=== PATIENT | female | born 1950 | race Caucasian/White ===

== ENCOUNTER 2017-02-25 04:15 | Inpatient (IN) | payer OTHER ==
[2017-02-24 16:24] LABS: BLOOD UREA NITROGEN 16 mg/dL (7-18)
[2017-02-24 16:28] LABS: ASPARTATE AMINO TRANSFERASE 13 U/L (15-37)
[~2017-02-25] VITALS: Ht 157.5 cm; Wt 88.1 kg
[~2017-02-25 04:15] MED LIST: ALBU90AE PO; ASPI325T4 PO; ATOR80TA75 PO; CITA40TA5 PO; FURO-93 PO; GABA600T2 PO; HYDR25TA11 PO; INSULIN ISOPHANE SQ; LISI1TAB7 PO; METO50TA82 PO
[2017-02-25] MEDS ORDERED: ALBUMIN HUMAN 5% 500 ML IV ONE (04:30)
[2017-02-25] MEDS ORDERED: CHLORHEXIDINE MOUTHWASH 15 ML UDC MM SCH (05:00)
[2017-02-25] MEDS ORDERED: DO NOT GIVE MC SCH (05:00)
[2017-02-25] MEDS: MUPIROCIN OINT 2%, 22GM TP SCH ×2 (05:54→20:21)
[2017-02-25] MEDS: INSULIN ASPART 100 UNITS/ML, PEN SQ-INSULIN SCH ×2 (05:58→23:41)
[2017-02-25] MEDS ORDERED: VANCOMYCIN 1,300 MG in SODIUM CHLORIDE 0.9% 250 ML IV PRN (07:30)
[2017-02-25] MEDS ORDERED: DEXMEDETOMIDINE 200 MCG in SODIUM CHLORIDE 0.9% 48 ML IV SCH (07:30)
[2017-02-25] MEDS ORDERED: PHENYLEPHRINE 10 MG in SODIUM CHLORIDE 0.9% 249 ML IV PRN ×2 (07:30→12:05)
[2017-02-25] MEDS ORDERED: MANNITOL PMX 20% 500 ML IVPB PRN (07:30)
[2017-02-25] MEDS ORDERED: REGULAR INSULIN 62.5 UNITS in SODIUM CHLORIDE 0.9% 249.375 ML IV PRN ×2 (07:30→12:30)
[2017-02-25] MEDS ORDERED: CEFUROXIME 1.5 GM in SODIUM CHLORIDE 0.9% 50 ML IVPB PRN (07:30)
[2017-02-25] MEDS ORDERED: POTASSIUM CHLORIDE 80 MEQ, SODIUM BICARBONATE 8.4% 10 MEQ, MAGNESIUM SULFATE 0.5 GM, LI... IV PRN (07:30)
[2017-02-25] MEDS ORDERED: EPINEPHRINE 2 MG in SODIUM CHLORIDE 0.9% 248 ML IV SCH (07:30)
[2017-02-25] MEDS ORDERED: FENTANYL PF 1000 MCG/20ML ONE (07:51)
[2017-02-25] MEDS ORDERED: MIDAZOLAM 10MG/2 ML ONE (07:51)
[2017-02-25] MEDS ORDERED: PROPOFOL 10 MG/ML, 20ML ONE (08:10)
[2017-02-25] MEDS ORDERED: ROCURONIUM 10 MG/ML ONE (08:10)
[2017-02-25] MEDS ORDERED: PAPAVERINE 30 MG/ML, 2ML IVPush ONE (09:16)
[2017-02-25] MEDS ORDERED: HEPARIN 1,000 UNITS/ML, 10ML IV ONE (09:16)
[2017-02-25] MEDS ORDERED: SODIUM CHLORIDE 0.9% 1,000 ML IV PRN (12:05)
[2017-02-25] MEDS ORDERED: DEXMEDETOMIDINE 200 MCG in SODIUM CHLORIDE 0.9% 48 ML IV PRN (12:05)
[2017-02-25] MEDS ORDERED: CLEVIDIPINE 50 ML IV PRN (12:05)
[2017-02-25] MEDS ORDERED: NITROGLYCERIN/D5W PMX 250 ML IV PRN (12:05)
[2017-02-25] MEDS ORDERED: PROCHLORPERAZINE 5 MG/ML, 2ML IVPush PRN (12:30)
[2017-02-25] MEDS ORDERED: DEXTROSE 50%, 50ML SYRINGE IVPush PRN (12:30)
[2017-02-25] MEDS ORDERED: BISACODYL 5 MG EC TABLET PO PRN (12:30)
[2017-02-25] MEDS ORDERED: LACTATED RINGERS 500 ML IVBOLUS PRN (12:30)
[2017-02-25] MEDS ORDERED: SODIUM BICARB 8.4%, 50ML SYRINGE IV PRN (12:30)
[2017-02-25] MEDS ORDERED: MIDAZOLAM 1 MG/ML, 5ML IVPush PRN (12:30)
[2017-02-25] MEDS ORDERED: MEPERIDINE/PF 25MG/0.5ML IVPush PRN (12:30)
[2017-02-25] MEDS ORDERED: DEXTROSE 4 GM TAB.CHEW PO PRN (12:30)
[2017-02-25] MEDS ORDERED: GLUCAGON 1 MG IM PRN (12:30)
[2017-02-25] MEDS ORDERED: ACETAMINOPHEN 650 MG SUPP PR PRN (12:30)
[2017-02-25] MEDS ORDERED: ACETAMINOPHEN 325 MG TABLET PO PRN (12:30)
[2017-02-25] MEDS ORDERED: HYDROmorphone 1 MG/ML, 1ML IVPush PRN (12:30)
[2017-02-25] MEDS ORDERED: BISACODYL 10 MG SUPP PR PRN (12:30)
[2017-02-25] MEDS ORDERED: HYDROmorphone PCA 30 MG/30 ML IV PRN (12:30)
[2017-02-25] MEDS ORDERED: PROTAMINE SULFATE 10 MG/ML, 25ML ONE (12:33)
[2017-02-25] MEDS ORDERED: AMINOCAPROIC ACID 250 MG/ML, 20ML ONE (12:34)
[2017-02-25] MEDS ORDERED: ALBUMIN HUMAN 25% 100 ML ONE (12:34)
[2017-02-25] MEDS ORDERED: SODIUM BICARBONATE 1 MEQ/ML, 50ML VIAL ONE (12:34)
[2017-02-25] MEDS ORDERED: CALCIUM CHLORIDE 10%, 10ML SYR ONE (12:34)
[2017-02-25] MEDS ORDERED: HEPARIN 1,000 UNITS/ML, 30ML ONE (12:34)
[2017-02-25] MEDS ORDERED: LIDOCAINE 2% 100MG/5ML SYRINGE ONE (12:35)
[2017-02-25] MEDS ORDERED: HEPARIN 1,000 UNITS/ML, 10ML ONE (12:35)
[2017-02-25] MEDS ORDERED: PAPAVERINE 30 MG/ML, 2ML ONE (12:35)
[2017-02-25 12:39] LABS: ABG COLLECTION SITE ARTERIAL LINE
[2017-02-25] MEDS: SODIUM CHLORIDE FLUSH 10ML SYR IVF SCH ×3 (13:11→20:20)
[2017-02-25] MEDS ORDERED: POTASSIUM CHLORIDE PMX 100 ML IV ONE (13:30)
[2017-02-25] MEDS ORDERED: EPINEPHRINE 2 MG in SODIUM CHLORIDE 0.9% 248 ML IV PRN (13:30)
[2017-02-25] MEDS: KSCALE TO 4.5 IV SCH ×2 (13:45→18:21)
[2017-02-25] MEDS ORDERED: DOBUTAMINE 250 MG in SODIUM CHLORIDE 0.9% 230 ML IV PRN (14:00)
[2017-02-25] MEDS: MAGNESIUM SULFATE 1 GM in SODIUM CHLORIDE 0.9% 50 ML IVPB SCH (14:27)
[2017-02-25 19:24] VITALS: BP 97/62
[2017-02-25] MEDS: CEFUROXIME 1.5 GM in SODIUM CHLORIDE 0.9% 50 ML IVPB SCH (20:20)
[2017-02-25] MEDS: MUPIROCIN OINT 2%, 22GM NAS SCH (20:21)
[2017-02-25] MEDS: VANCOMYCIN 1,300 MG in SODIUM CHLORIDE 0.9% 250 ML IVPB SCH (21:18)
[2017-02-25] MEDS: DOCUSATE 100 MG CAPSULE PO SCH (21:18)
[2017-02-25] MEDS: OXYcodone IR 5MG TABLET PO PRN (21:19)
[2017-02-25] MEDS: INSULIN ASPART 100 UNITS/ML, PEN SQ-INSULIN PRN (22:33)
[2017-02-25] MEDS: HYDROcodone/APAP 10/325 MG TABLET PO PRN (23:44)
[2017-02-26] VITALS (10 sets, daily range): BP systolic 84–105; BP diastolic 40–66
[2017-02-26] MEDS: INSULIN ASPART 100 UNITS/ML, PEN SQ-INSULIN SCH ×6 (00:23→17:12)
[2017-02-26] MEDS: KSCALE TO 4.5 IV SCH ×2 (00:30→05:33)
[2017-02-26] MEDS: OXYcodone IR 5MG TABLET PO PRN (02:39)
[2017-02-26 05:31] LABS: BLOOD UREA NITROGEN 18 mg/dL (7-18)
[2017-02-26 05:33] LABS: ABG COLLECTION SITE ARTERIAL LINE
[2017-02-26] MEDS: HYDROcodone/APAP 10/325 MG TABLET PO PRN ×3 (06:37→15:28)
[2017-02-26] MEDS: ONDANSETRON 2MG/ML, 2ML IVPush PRN ×2 (06:37→17:42)
[2017-02-26] MEDS: CEFUROXIME 1.5 GM in SODIUM CHLORIDE 0.9% 50 ML IVPB SCH (07:59)
[2017-02-26] MEDS: VANCOMYCIN 1,300 MG in SODIUM CHLORIDE 0.9% 250 ML IVPB SCH (07:59)
[2017-02-26] MEDS: ALBUTEROL SULFATE 2.5 MG/3 ML HHN SCH ×3 (08:00→16:00)
[2017-02-26] MEDS ORDERED: MAGNESIUM HYDROXIDE 8%, 30ML UDC PO PRN (08:00)
[2017-02-26] MEDS: FUROSEMIDE 20 MG/2 ML IV SCH ×3 (08:59→21:07)
[2017-02-26] MEDS: MUPIROCIN OINT 2%, 22GM NAS SCH ×2 (08:59→21:07)
[2017-02-26] MEDS: DOCUSATE 100 MG CAPSULE PO SCH ×2 (08:59→21:10)
[2017-02-26] MEDS: SODIUM CHLORIDE FLUSH 10ML SYR IVF SCH ×5 (08:59→21:11)
[2017-02-26] MEDS ORDERED: GABAPENTIN 300 MG CAPSULE PO SCH (09:00)
[2017-02-26] MEDS ORDERED: FUROSEMIDE 40 MG/4 ML IV SCH ×2 (09:00)
[2017-02-26] MEDS ORDERED: ASPIRIN 81 MG TABLET EC PO SCH (09:00)
[2017-02-26] MEDS ORDERED: CITALOPRAM 20 MG TABLET PO SCH (09:00)
[2017-02-26] MEDS: MUPIROCIN OINT 2%, 22GM TP SCH ×2 (09:00→21:07)
[2017-02-26] MEDS ORDERED: PANTOPRAZOLE 40 MG IV IVPush SCH (09:00)
[2017-02-26] MEDS: GUAIFENESIN 200 MG TABLET PO SCH ×3 (11:24→21:09)
[2017-02-26] MEDS: CHLORHEXIDINE MOUTHWASH 15 ML UDC MM SCH ×2 (14:34→23:48)
[2017-02-26] MEDS: MAGNESIUM SULFATE 1 GM in SODIUM CHLORIDE 0.9% 50 ML IVPB SCH (14:35)
[2017-02-26] MEDS ORDERED: WARFARIN 5 MG TABLET PO-COUM SCH (18:00)
[2017-02-26] MEDS ORDERED: METOPROLOL TARTRATE 25 MG TABLET PO SCH (18:00)
[2017-02-26] MEDS ORDERED: ATORVASTATIN 80 MG TABLET PO SCH (21:00)
[2017-02-27] MEDS: INSULIN ASPART 100 UNITS/ML, PEN SQ-INSULIN SCH ×2 (00:35→08:41)
[2017-02-27] MEDS ORDERED: ACETAMINOPHEN 325 MG TABLET PO PRN (01:00)
[2017-02-27] MEDS ORDERED: ACETAMINOPHEN 650 MG SUPP PR PRN (01:00)
[2017-02-27] MEDS: ONDANSETRON 2MG/ML, 2ML IVPush PRN ×3 (01:06→08:31)
[2017-02-27] MEDS: HYDROcodone/APAP 10/325 MG TABLET PO PRN (01:06)
[2017-02-27] MEDS ORDERED: ONDANSETRON 2MG/ML, 2ML ONE (01:29)
[2017-02-27] MEDS ORDERED: CHLORHEXIDINE MOUTHWASH 15 ML UDC MM SCH ×2 (01:30)
[2017-02-27] MEDS ORDERED: BISACODYL 10 MG SUPP PR PRN (01:30)
[2017-02-27] MEDS ORDERED: DEXTROSE 4 GM TAB.CHEW PO PRN (01:30)
[2017-02-27] MEDS ORDERED: DEXTROSE 50%, 50ML SYRINGE IVPush PRN (01:30)
[2017-02-27] MEDS ORDERED: BISACODYL 5 MG EC TABLET PO PRN (01:30)
[2017-02-27 01:48] VITALS: BP 94/55
[2017-02-27] MEDS ORDERED: MAGNESIUM HYDROXIDE 8%, 30ML UDC PO PRN (02:00)
[2017-02-27] MEDS ORDERED: PROCHLORPERAZINE 5 MG/ML, 2ML IVPush PRN (02:00)
[2017-02-27] MEDS ORDERED: SODIUM BICARB 8.4%, 50ML SYRINGE IV PRN (02:00)
[2017-02-27] MEDS ORDERED: GLUCAGON 1 MG IM PRN (02:00)
[2017-02-27] MEDS: ALBUTEROL SULFATE 2.5 MG/3 ML HHN SCH ×4 (06:00→21:00)
[2017-02-27] MEDS: GUAIFENESIN 200 MG TABLET PO SCH ×4 (06:07→20:29)
[2017-02-27] MEDS: METOPROLOL TARTRATE 25 MG TABLET PO SCH ×2 (06:07→17:31)
[2017-02-27 06:08] VITALS: BP 106/67
[2017-02-27 07:46] VITALS: BP 109/67
[2017-02-27] MEDS: FUROSEMIDE 20 MG/2 ML IV SCH ×2 (08:32→20:30)
[2017-02-27] MEDS: SODIUM CHLORIDE FLUSH 10ML SYR IVF SCH ×6 (08:32→20:31)
[2017-02-27] MEDS: MUPIROCIN OINT 2%, 22GM NAS SCH ×2 (08:34→20:30)
[2017-02-27] MEDS: CITALOPRAM 20 MG TABLET PO SCH (08:35)
[2017-02-27] MEDS: DOCUSATE 100 MG CAPSULE PO SCH ×2 (08:35→20:31)
[2017-02-27] MEDS: ASPIRIN 81 MG TABLET EC PO SCH (08:35)
[2017-02-27] MEDS: GABAPENTIN 300 MG CAPSULE PO SCH (08:36)
[2017-02-27] MEDS: ENOXAPARIN 40 MG/0.4 ML SQ SCH (08:36)
[2017-02-27] MEDS: POTASSIUM CHLORIDE 20 MEQ TAB.ER.PRT PO SCH (08:36)
[2017-02-27] MEDS ORDERED: ENOXAPARIN 40 MG/0.4 ML SQ SCH (09:00)
[2017-02-27] MEDS ORDERED: POTASSIUM CHLORIDE 20 MEQ TAB.ER.PRT PO SCH (09:00)
[2017-02-27] MEDS ORDERED: POTASSIUM CHLORIDE 10 MEQ TABLET.ER PO SCH (09:00)
[2017-02-27] MEDS ORDERED: FUROSEMIDE 20 MG/2 ML IV SCH (09:00)
[2017-02-27] MEDS ORDERED: PANTOPRAZOLE 40 MG IV IVPush SCH (09:00)
[2017-02-27 09:25] LABS: BLOOD UREA NITROGEN 30 mg/dL (7-18)
[2017-02-27] MEDS: CHLORHEXIDINE MOUTHWASH 15 ML UDC MM SCH (12:21)
[2017-02-27] MEDS: INSULIN ASPART 100 UNITS/ML, PEN SQ-INSULIN PRN ×3 (12:34→20:36)
[2017-02-27 14:30] VITALS: BP 106/63
[2017-02-27] MEDS: MAGNESIUM SULFATE 1 GM in SODIUM CHLORIDE 0.9% 50 ML IVPB SCH (15:56)
[2017-02-27] MEDS ORDERED: WARFARIN 5 MG TABLET PO-COUM SCH (18:00)
[2017-02-27 19:08] VITALS: BP 95/59
[2017-02-27] MEDS: ATORVASTATIN 80 MG TABLET PO SCH (20:31)
[2017-02-28] MEDS: CHLORHEXIDINE MOUTHWASH 15 ML UDC MM SCH (00:42)
[2017-02-28 00:49] VITALS: BP 98/60
[2017-02-28] MEDS: HYDROcodone/APAP 10/325 MG TABLET PO PRN ×2 (04:02→21:07)
[2017-02-28] MEDS: ALBUTEROL SULFATE 2.5 MG/3 ML HHN SCH ×4 (06:00→21:00)
[2017-02-28] MEDS: GUAIFENESIN 200 MG TABLET PO SCH ×4 (06:09→21:06)
[2017-02-28] MEDS: METOPROLOL TARTRATE 25 MG TABLET PO SCH ×2 (06:09→17:54)
[2017-02-28 08:09] VITALS: BP 101/62
[2017-02-28] MEDS: INSULIN ASPART 100 UNITS/ML, PEN SQ-INSULIN PRN ×2 (08:28→21:06)
[2017-02-28] MEDS: CITALOPRAM 20 MG TABLET PO SCH (08:28)
[2017-02-28] MEDS: PANTOPROZOLE 40MG TABLET PO SCH (08:29)
[2017-02-28] MEDS: MUPIROCIN OINT 2%, 22GM NAS SCH ×2 (08:29→21:06)
[2017-02-28] MEDS: ENOXAPARIN 40 MG/0.4 ML SQ SCH (08:29)
[2017-02-28] MEDS: DOCUSATE 100 MG CAPSULE PO SCH ×2 (08:29→20:45)
[2017-02-28] MEDS: ASPIRIN 81 MG TABLET EC PO SCH (08:29)
[2017-02-28] MEDS: POTASSIUM CHLORIDE 20 MEQ TAB.ER.PRT PO SCH (08:29)
[2017-02-28] MEDS: GABAPENTIN 300 MG CAPSULE PO SCH (08:29)
[2017-02-28] MEDS: FUROSEMIDE 20 MG/2 ML IV SCH ×2 (08:30→17:57)
[2017-02-28] MEDS: SODIUM CHLORIDE FLUSH 10ML SYR IVF SCH ×6 (08:30→21:06)
[2017-02-28] MEDS: INSULIN ASPART 100 UNITS/ML, PEN SQ-INSULIN SCH ×2 (11:25→17:47)
[2017-02-28 14:30] VITALS: BP 118/67
[2017-02-28] MEDS ORDERED: WARFARIN 2.5 MG TABLET PO-COUM SCH (18:00)
[2017-02-28 19:29] VITALS: BP 105/68
[2017-02-28] MEDS: ATORVASTATIN 80 MG TABLET PO SCH (21:06)
[2017-03-01] VITALS (7 sets, daily range): BP systolic 93–145; BP diastolic 57–70
[2017-03-01] MEDS: ALBUTEROL SULFATE 2.5 MG/3 ML HHN SCH ×4 (06:00→20:46)
[2017-03-01] MEDS: METOPROLOL TARTRATE 25 MG TABLET PO SCH ×2 (06:51→17:50)
[2017-03-01] MEDS: GUAIFENESIN 200 MG TABLET PO SCH ×4 (06:51→20:14)
[2017-03-01] MEDS: PANTOPROZOLE 40MG TABLET PO SCH (07:56)
[2017-03-01] MEDS: INSULIN ASPART 100 UNITS/ML, PEN SQ-INSULIN SCH ×3 (07:56→17:55)
[2017-03-01] MEDS: SODIUM CHLORIDE FLUSH 10ML SYR IVF SCH ×6 (07:57→20:29)
[2017-03-01] MEDS: FUROSEMIDE 20 MG/2 ML IV SCH ×2 (07:57→20:19)
[2017-03-01] MEDS: CITALOPRAM 20 MG TABLET PO SCH (07:58)
[2017-03-01] MEDS: ASPIRIN 81 MG TABLET EC PO SCH (07:58)
[2017-03-01] MEDS: DOCUSATE 100 MG CAPSULE PO SCH ×2 (07:58→20:29)
[2017-03-01] MEDS: MUPIROCIN OINT 2%, 22GM NAS SCH ×2 (07:58→20:14)
[2017-03-01] MEDS: GABAPENTIN 300 MG CAPSULE PO SCH (07:59)
[2017-03-01] MEDS: ENOXAPARIN 40 MG/0.4 ML SQ SCH (07:59)
[2017-03-01] MEDS: POTASSIUM CHLORIDE 20 MEQ TAB.ER.PRT PO SCH (07:59)
[2017-03-01] MEDS: HYDROcodone/APAP 10/325 MG TABLET PO PRN ×2 (08:21→20:28)
[2017-03-01] MEDS ORDERED: WARFARIN 1 MG TABLET PO-COUM SCH (18:00)
[2017-03-01] MEDS: ATORVASTATIN 80 MG TABLET PO SCH (20:14)
[2017-03-01] MEDS: INSULIN ASPART 100 UNITS/ML, PEN SQ-INSULIN PRN (20:18)
[2017-03-01] MEDS: AMIODARONE 900 MG in DEXTROSE 5% 482 ML IV PRN (22:26)
[2017-03-01] MEDS ORDERED: AMIODARONE 150 MG in DEXTROSE 5% 100 ML IV ONE (22:30)
[2017-03-02 01:40] VITALS: BP 98/58
[2017-03-02] MEDS: HYDROcodone/APAP 10/325 MG TABLET PO PRN ×2 (01:57→12:02)
[2017-03-02] MEDS: METOPROLOL TARTRATE 25 MG TABLET PO SCH ×2 (06:00→17:05)
[2017-03-02] MEDS: GUAIFENESIN 200 MG TABLET PO SCH ×4 (06:29→22:30)
[2017-03-02 07:10] VITALS: BP 132/70
[2017-03-02] MEDS ORDERED: FUROSEMIDE 20 MG/2 ML IV SCH (07:30)
[2017-03-02] MEDS: ALBUTEROL SULFATE 2.5 MG/3 ML HHN SCH ×4 (07:59→21:18)
[2017-03-02] MEDS: INSULIN ASPART 100 UNITS/ML, PEN SQ-INSULIN SCH ×2 (08:27→22:50)
[2017-03-02] MEDS: GABAPENTIN 300 MG CAPSULE PO SCH (08:29)
[2017-03-02] MEDS: DOCUSATE 100 MG CAPSULE PO SCH (08:29)
[2017-03-02] MEDS: CITALOPRAM 20 MG TABLET PO SCH (08:29)
[2017-03-02] MEDS: POTASSIUM CHLORIDE 20 MEQ TAB.ER.PRT PO SCH (08:29)
[2017-03-02] MEDS: PANTOPROZOLE 40MG TABLET PO SCH (08:30)
[2017-03-02] MEDS: ENOXAPARIN 40 MG/0.4 ML SQ SCH (08:30)
[2017-03-02] MEDS: SODIUM CHLORIDE FLUSH 10ML SYR IVF SCH ×6 (08:30→22:30)
[2017-03-02] MEDS: MUPIROCIN OINT 2%, 22GM NAS SCH (08:30)
[2017-03-02] MEDS: ASPIRIN 81 MG TABLET EC PO SCH (08:38)
[2017-03-02] MEDS: AMIODARONE 200 MG TABLET PO SCH ×2 (09:55→22:31)
[2017-03-02] MEDS: INSULIN ASPART 100 UNITS/ML, PEN SQ-INSULIN PRN ×2 (11:57→17:15)
[2017-03-02 14:49] VITALS: BP 122/68
[2017-03-02] MEDS: FUROSEMIDE 20 MG/2 ML IV SCH (17:05)
[2017-03-02] MEDS ORDERED: WARFARIN 1 MG TABLET PO-COUM ONE (18:30)
[2017-03-02 20:00] VITALS: BP 115/59
[2017-03-02] MEDS: AMIODARONE 900 MG in DEXTROSE 5% 482 ML IV PRN (21:26)
[2017-03-02] MEDS: FILTER 0.22 MICRON IV PRN (21:26)
[2017-03-02] MEDS: ATORVASTATIN 80 MG TABLET PO SCH (22:30)
[2017-03-03] MEDS: ALBUTEROL SULFATE 2.5 MG/3 ML HHN SCH ×4 (00:40→19:52)
[2017-03-03 00:59] VITALS: BP 117/64
[2017-03-03] MEDS: FUROSEMIDE 20 MG/2 ML IV SCH ×3 (01:12→21:38)
[2017-03-03] MEDS ORDERED: ALBUTEROL SULFATE 2.5 MG/3 ML NPPB PRN (01:30)
[2017-03-03] MEDS ORDERED: methylPREDNISolone SOD SUCC 125 MG/2 ML IVPush STA (02:26)
[2017-03-03] MEDS ORDERED: FUROSEMIDE 40 MG/4 ML IV STA (03:30)
[2017-03-03] MEDS: GUAIFENESIN 200 MG TABLET PO SCH ×4 (06:41→21:39)
[2017-03-03] MEDS: ALBUTEROL SULFATE 2.5 MG/3 ML NPPB SCH ×4 (07:00→19:53)
[2017-03-03 07:35] VITALS: BP 146/64
[2017-03-03 08:37] LABS: BLOOD UREA NITROGEN 47 mg/dL (7-18)
[2017-03-03] MEDS: INSULIN ASPART 100 UNITS/ML, PEN SQ-INSULIN SCH ×2 (08:48→21:48)
[2017-03-03] MEDS: POTASSIUM CHLORIDE 20 MEQ TAB.ER.PRT PO SCH (08:49)
[2017-03-03] MEDS: ASPIRIN 81 MG TABLET EC PO SCH (08:49)
[2017-03-03] MEDS: CITALOPRAM 20 MG TABLET PO SCH (08:50)
[2017-03-03] MEDS: GABAPENTIN 300 MG CAPSULE PO SCH (08:50)
[2017-03-03] MEDS: AMIODARONE 200 MG TABLET PO SCH ×2 (08:50→21:37)
[2017-03-03] MEDS: METOPROLOL TARTRATE 25 MG TABLET PO SCH ×2 (08:51→17:47)
[2017-03-03] MEDS: PANTOPROZOLE 40MG TABLET PO SCH (08:51)
[2017-03-03] MEDS: DOCUSATE 100 MG CAPSULE PO SCH (08:51)
[2017-03-03] MEDS: SODIUM CHLORIDE FLUSH 10ML SYR IVF SCH ×6 (08:51→21:38)
[2017-03-03] MEDS: ENOXAPARIN 40 MG/0.4 ML SQ SCH (08:54)
[2017-03-03] MEDS: INSULIN ASPART 100 UNITS/ML, PEN SQ-INSULIN PRN ×2 (12:01→17:44)
[2017-03-03 13:18] VITALS: BP 99/65
[2017-03-03] MEDS ORDERED: WARFARIN 1 MG TABLET PO-COUM ONE (18:00)
[2017-03-03] MEDS: ALBUMIN HUMAN 25% 50 ML IV SCH (18:40)
[2017-03-03 19:15] VITALS: BP 128/68
[2017-03-03] MEDS: ATORVASTATIN 80 MG TABLET PO SCH (21:38)
[2017-03-04] MEDS: FILTER 0.22 MICRON IV PRN (01:58)
[2017-03-04] MEDS: AMIODARONE 900 MG in DEXTROSE 5% 482 ML IV PRN (01:59)
[2017-03-04 02:00] VITALS: BP 146/74
[2017-03-04] MEDS: ALBUTEROL SULFATE 2.5 MG/3 ML NPPB SCH ×4 (04:50→19:45)
[2017-03-04] MEDS: ALBUMIN HUMAN 25% 50 ML IV SCH ×2 (05:34→16:24)
[2017-03-04] MEDS: ONDANSETRON 2MG/ML, 2ML IVPush PRN (05:40)
[2017-03-04] MEDS: METOPROLOL TARTRATE 25 MG TABLET PO SCH ×2 (06:34→18:20)
[2017-03-04] MEDS: FUROSEMIDE 20 MG/2 ML IV SCH ×2 (06:34→15:09)
[2017-03-04] MEDS: GUAIFENESIN 200 MG TABLET PO SCH ×4 (06:34→20:56)
[2017-03-04 06:41] LABS: BLOOD UREA NITROGEN 54 mg/dL (7-18)
[2017-03-04 06:44] VITALS: BP 133/72
[2017-03-04] MEDS: INSULIN ASPART 100 UNITS/ML, PEN SQ-INSULIN PRN ×4 (08:25→21:25)
[2017-03-04] MEDS: SODIUM CHLORIDE FLUSH 10ML SYR IVF SCH ×4 (08:26→20:56)
[2017-03-04] MEDS: ASPIRIN 81 MG TABLET EC PO SCH (08:29)
[2017-03-04] MEDS: PANTOPROZOLE 40MG TABLET PO SCH (08:29)
[2017-03-04] MEDS: AMIODARONE 200 MG TABLET PO SCH ×2 (08:29→20:55)
[2017-03-04] MEDS: CITALOPRAM 20 MG TABLET PO SCH (08:44)
[2017-03-04] MEDS ORDERED: HOLD COUMADIN MC PRN (10:00)
[2017-03-04] MEDS: DOCUSATE 100 MG CAPSULE PO SCH (10:11)
[2017-03-04] MEDS: POTASSIUM CHLORIDE 20 MEQ TAB.ER.PRT PO SCH (10:11)
[2017-03-04] MEDS: GABAPENTIN 300 MG CAPSULE PO SCH (10:11)
[2017-03-04 14:06] VITALS: BP 152/69
[2017-03-04 14:51] VITALS: BP 181/77
[2017-03-04] MEDS ORDERED: FUROSEMIDE 40 MG/4 ML IV ONE (15:30)
[2017-03-04 16:20] VITALS: BP 125/67
[2017-03-04] MEDS: methylPREDNISolone SOD SUCC 125 MG/2 ML IVPush SCH (16:24)
[2017-03-04 19:10] VITALS: BP 133/68
[2017-03-04] MEDS: ATORVASTATIN 80 MG TABLET PO SCH (20:55)
[2017-03-05] MEDS: HYDROcodone/APAP 10/325 MG TABLET PO PRN ×4 (00:17→18:39)
[2017-03-05] MEDS: methylPREDNISolone SOD SUCC 125 MG/2 ML IVPush SCH ×3 (00:17→17:17)
[2017-03-05 00:31] VITALS: BP 142/69
[2017-03-05] MEDS: ALBUMIN HUMAN 25% 50 ML IV SCH ×2 (04:44→17:17)
[2017-03-05] MEDS: GUAIFENESIN 200 MG TABLET PO SCH ×4 (05:23→21:37)
[2017-03-05] MEDS: FUROSEMIDE 20 MG/2 ML IV SCH ×2 (05:23→18:39)
[2017-03-05 06:09] LABS: BLOOD UREA NITROGEN 58 mg/dL (7-18)
[2017-03-05] MEDS: METOPROLOL TARTRATE 25 MG TABLET PO SCH ×2 (06:32→17:14)
[2017-03-05] MEDS: ALBUTEROL SULFATE 2.5 MG/3 ML NPPB SCH ×4 (06:40→20:00)
[2017-03-05 07:33] VITALS: BP 144/71
[2017-03-05] MEDS ORDERED: HOLD COUMADIN MC PRN (08:30)
[2017-03-05] MEDS: INSULIN ASPART 100 UNITS/ML, PEN SQ-INSULIN PRN ×2 (09:07→17:13)
[2017-03-05] MEDS: ASPIRIN 81 MG TABLET EC PO SCH (09:09)
[2017-03-05] MEDS: POTASSIUM CHLORIDE 20 MEQ TAB.ER.PRT PO SCH (09:09)
[2017-03-05] MEDS: CITALOPRAM 20 MG TABLET PO SCH (09:09)
[2017-03-05] MEDS: GABAPENTIN 300 MG CAPSULE PO SCH (09:11)
[2017-03-05] MEDS: PANTOPROZOLE 40MG TABLET PO SCH (09:12)
[2017-03-05] MEDS: DOCUSATE 100 MG CAPSULE PO SCH (09:12)
[2017-03-05] MEDS: SODIUM CHLORIDE FLUSH 10ML SYR IVF SCH ×2 (09:13→21:37)
[2017-03-05] MEDS: AMIODARONE 200 MG TABLET PO SCH ×2 (09:13→21:36)
[2017-03-05 14:40] VITALS: BP 143/61
[2017-03-05] MEDS: INSULIN ASPART 100 UNITS/ML, PEN SQ-INSULIN SCH (19:27)
[2017-03-05 19:38] VITALS: BP 122/88
[2017-03-05] MEDS ORDERED: INSULIN DETEMIR 100 UNITS/ML, PEN SQ-INSULIN SCH (21:00)
[2017-03-05] MEDS: ATORVASTATIN 80 MG TABLET PO SCH (21:36)
[2017-03-06] MEDS: methylPREDNISolone SOD SUCC 125 MG/2 ML IVPush SCH ×2 (00:54→07:45)
[2017-03-06 01:26] VITALS: BP 113/67
[2017-03-06 05:12] LABS: BLOOD UREA NITROGEN 65 mg/dL (7-18)
[2017-03-06] MEDS: ALBUMIN HUMAN 25% 50 ML IV SCH (05:29)
[2017-03-06] MEDS: GUAIFENESIN 200 MG TABLET PO SCH ×4 (06:38→20:42)
[2017-03-06] MEDS: FUROSEMIDE 20 MG/2 ML IV SCH (06:38)
[2017-03-06] MEDS: METOPROLOL TARTRATE 25 MG TABLET PO SCH ×2 (06:38→17:00)
[2017-03-06] MEDS: ALBUTEROL SULFATE 2.5 MG/3 ML NPPB SCH ×3 (07:00→19:22)
[2017-03-06 07:01] VITALS: BP 171/68
[2017-03-06] MEDS: INSULIN ASPART 100 UNITS/ML, PEN SQ-INSULIN SCH ×4 (07:43→20:44)
[2017-03-06] MEDS: AMIODARONE 200 MG TABLET PO SCH ×2 (07:44→21:56)
[2017-03-06] MEDS: CITALOPRAM 20 MG TABLET PO SCH (07:44)
[2017-03-06] MEDS: PANTOPROZOLE 40MG TABLET PO SCH (07:44)
[2017-03-06] MEDS: DOCUSATE 100 MG CAPSULE PO SCH (07:45)
[2017-03-06] MEDS: GABAPENTIN 300 MG CAPSULE PO SCH (07:45)
[2017-03-06] MEDS: SODIUM CHLORIDE FLUSH 10ML SYR IVF SCH ×2 (07:46→20:42)
[2017-03-06] MEDS: ASPIRIN 81 MG TABLET EC PO SCH (07:47)
[2017-03-06] MEDS: CIPROFLOXACIN 500 MG TABLET PO SCH ×2 (08:36→20:42)
[2017-03-06] MEDS ORDERED: AMLODIPINE 5 MG TABLET PO SCH (09:00)
[2017-03-06] MEDS: AMLODIPINE 5 MG TABLET PO SCH (09:00)
[2017-03-06] MEDS ORDERED: FILTER 0.22 MICRON IV ONE (09:30)
[2017-03-06] MEDS ORDERED: AMIODARONE 150 MG in DEXTROSE 5% 100 ML IV ONE (09:30)
[2017-03-06 14:00] VITALS: BP 136/66
[2017-03-06] MEDS: HYDROcodone/APAP 10/325 MG TABLET PO PRN (16:56)
[2017-03-06] MEDS ORDERED: HOLD COUMADIN MC ONE (18:00)
[2017-03-06 20:18] VITALS: BP 123/64
[2017-03-06] MEDS: ATORVASTATIN 80 MG TABLET PO SCH (20:42)
[2017-03-06] MEDS ORDERED: INSULIN DETEMIR 100 UNITS/ML, PEN SQ-INSULIN SCH (21:00)
[2017-03-07 01:22] VITALS: BP 120/63
[2017-03-07] MEDS: METOPROLOL TARTRATE 25 MG TABLET PO SCH ×2 (05:43→16:41)
[2017-03-07] MEDS: HYDROcodone/APAP 10/325 MG TABLET PO PRN (05:43)
[2017-03-07] MEDS: GUAIFENESIN 200 MG TABLET PO SCH ×4 (05:52→20:56)
[2017-03-07 06:02] LABS: BLOOD UREA NITROGEN 61 mg/dL (7-18)
[2017-03-07] MEDS: ALBUTEROL SULFATE 2.5 MG/3 ML NPPB SCH ×4 (07:15→20:00)
[2017-03-07] MEDS: AMIODARONE 200 MG TABLET PO SCH ×2 (07:18→20:56)
[2017-03-07] MEDS: INSULIN ASPART 100 UNITS/ML, PEN SQ-INSULIN SCH ×4 (07:18→20:57)
[2017-03-07] MEDS: CITALOPRAM 20 MG TABLET PO SCH (07:19)
[2017-03-07] MEDS: SODIUM CHLORIDE FLUSH 10ML SYR IVF SCH ×2 (07:19→20:55)
[2017-03-07] MEDS: PANTOPROZOLE 40MG TABLET PO SCH (07:19)
[2017-03-07] MEDS: GABAPENTIN 300 MG CAPSULE PO SCH (07:19)
[2017-03-07] MEDS: CIPROFLOXACIN 500 MG TABLET PO SCH ×2 (07:19→20:55)
[2017-03-07] MEDS: AMLODIPINE 5 MG TABLET PO SCH (07:20)
[2017-03-07] MEDS: DOCUSATE 100 MG CAPSULE PO SCH (07:20)
[2017-03-07] MEDS: ASPIRIN 81 MG TABLET EC PO SCH (07:20)
[2017-03-07 07:42] VITALS: BP 116/65
[2017-03-07 12:59] VITALS: BP 113/61
[2017-03-07] MEDS ORDERED: WARFARIN 1 MG TABLET PO-COUM ONE (18:00)
[2017-03-07 20:16] VITALS: BP 125/67
[2017-03-07] MEDS: ATORVASTATIN 80 MG TABLET PO SCH (20:56)
[2017-03-07] MEDS ORDERED: INSULIN DETEMIR 100 UNITS/ML, PEN SQ-INSULIN SCH (21:00)
[2017-03-08 01:05] VITALS: BP 132/66
[2017-03-08] MEDS: ALBUTEROL SULFATE 2.5 MG/3 ML NPPB SCH ×4 (06:06→19:30)
[2017-03-08] MEDS: GUAIFENESIN 200 MG TABLET PO SCH ×4 (06:26→20:36)
[2017-03-08 08:30] VITALS: BP 156/64
[2017-03-08] MEDS ORDERED: FUROSEMIDE 40 MG/4 ML IV ONE (08:30)
[2017-03-08] MEDS: PANTOPROZOLE 40MG TABLET PO SCH (08:31)
[2017-03-08 08:32] VITALS: BP 156/67
[2017-03-08] MEDS: AMLODIPINE 5 MG TABLET PO SCH (08:32)
[2017-03-08] MEDS: METOPROLOL TARTRATE 25 MG TABLET PO SCH ×2 (08:32→18:06)
[2017-03-08] MEDS: GABAPENTIN 300 MG CAPSULE PO SCH (08:32)
[2017-03-08] MEDS: CIPROFLOXACIN 500 MG TABLET PO SCH ×2 (08:34→20:36)
[2017-03-08] MEDS: AMIODARONE 200 MG TABLET PO SCH ×2 (08:34→20:36)
[2017-03-08] MEDS: ASPIRIN 81 MG TABLET EC PO SCH (08:34)
[2017-03-08] MEDS: DOCUSATE 100 MG CAPSULE PO SCH (08:34)
[2017-03-08] MEDS: CITALOPRAM 20 MG TABLET PO SCH (08:35)
[2017-03-08] MEDS: SODIUM CHLORIDE FLUSH 10ML SYR IVF SCH ×2 (08:35→20:35)
[2017-03-08] MEDS: INSULIN ASPART 100 UNITS/ML, PEN SQ-INSULIN SCH ×4 (08:38→20:37)
[2017-03-08 08:43] LABS: BLOOD UREA NITROGEN 54 mg/dL (7-18)
[2017-03-08] MEDS ORDERED: FUROSEMIDE 40 MG/4 ML ONE (08:43)
[2017-03-08] MEDS: ONDANSETRON 2MG/ML, 2ML IVPush PRN (08:58)
[2017-03-08 12:32] VITALS: BP 107/70
[2017-03-08] MEDS: OXYcodone IR 5MG TABLET PO PRN (12:33)
[2017-03-08] MEDS: NYSTATIN 500,000 UNITS/5 ML UDC PO SCH ×3 (12:33→20:36)
[2017-03-08 13:45] VITALS: BP 100/59
[2017-03-08] MEDS ORDERED: WARFARIN 1 MG TABLET PO-COUM ONE (18:00)
[2017-03-08 19:45] VITALS: BP 119/63
[2017-03-08] MEDS: ATORVASTATIN 80 MG TABLET PO SCH (20:36)
[2017-03-08] MEDS ORDERED: INSULIN DETEMIR 100 UNITS/ML, PEN SQ-INSULIN SCH (21:00)
[2017-03-09 01:39] VITALS: BP 107/67
[2017-03-09] MEDS: ONDANSETRON 2MG/ML, 2ML IVPush PRN (06:00)
[2017-03-09 06:15] LABS: BLOOD UREA NITROGEN 48 mg/dL (7-18)
[2017-03-09] MEDS: ALBUTEROL SULFATE 2.5 MG/3 ML NPPB SCH ×2 (06:20→11:00)
[2017-03-09] MEDS: OXYcodone IR 5MG TABLET PO PRN (06:27)
[2017-03-09] MEDS: INSULIN ASPART 100 UNITS/ML, PEN SQ-INSULIN SCH ×2 (07:02→12:07)
[2017-03-09 07:53] VITALS: BP 143/66
[2017-03-09] MEDS: NYSTATIN 500,000 UNITS/5 ML UDC PO SCH (08:52)
[2017-03-09] MEDS: DOCUSATE 100 MG CAPSULE PO SCH (08:54)
[2017-03-09] MEDS: CITALOPRAM 20 MG TABLET PO SCH (08:54)
[2017-03-09] MEDS: GUAIFENESIN 200 MG TABLET PO SCH ×2 (08:54→12:07)
[2017-03-09] MEDS: ASPIRIN 81 MG TABLET EC PO SCH (08:54)
[2017-03-09] MEDS: GABAPENTIN 300 MG CAPSULE PO SCH (08:54)
[2017-03-09] MEDS: PANTOPROZOLE 40MG TABLET PO SCH (08:54)
[2017-03-09] MEDS: AMLODIPINE 5 MG TABLET PO SCH (08:54)
[2017-03-09] MEDS: CIPROFLOXACIN 500 MG TABLET PO SCH (08:54)
[2017-03-09] MEDS: SODIUM CHLORIDE FLUSH 10ML SYR IVF SCH (08:55)
[2017-03-09] MEDS: AMIODARONE 200 MG TABLET PO SCH (09:13)
[2017-03-09] MEDS: METOPROLOL TARTRATE 25 MG TABLET PO SCH (09:13)
[2017-03-09] MEDS ORDERED: INSU100I28 SQ-INSULIN (10:26)
[2017-03-09] MEDS ORDERED: ASPI-621 PO (10:26)
[2017-03-09] MEDS ORDERED: INSU100I18 SQ-INSULIN (10:26)
[2017-03-09] MEDS ORDERED: ALBU2.5V NPPB (10:26)
[2017-03-09] MEDS ORDERED: METO25TA35 PO (10:26)
[2017-03-09] MEDS ORDERED: CIPR500T87 PO (10:26)
[2017-03-09] MEDS ORDERED: GUAI200T3 PO (10:26)
[2017-03-09] MEDS ORDERED: AMLO5TAB2 PO (10:26)
[2017-03-09] MEDS ORDERED: CITA20TA9 PO (10:26)
[2017-03-09] MEDS ORDERED: WARF1TAB PO-COUM (10:26)
[2017-03-09] MEDS ORDERED: NYST1000 PO (10:26)
[2017-03-09] MEDS ORDERED: DOCU-30 PO (10:26)
[2017-03-09] MEDS ORDERED: WARFARIN 1 MG TABLET PO-COUM ONE (18:00)
[2017-03-10] MEDS ORDERED: AMIODARONE 200 MG TABLET PO SCH (09:00)
[2017-03-10] MEDS ORDERED: AMIODARONE 200 MG TABLET PO ONE (09:00)
== END 2017-03-09 14:15 | DRG 219 ==
LOC: 5SO 04:15 → CCU 08:07 → CSU 09:18 → 5SO 02-26 17:24 → UNDODISIN 02-26 18:14
PROVIDERS: ADMIT Thoracic Surgery (Cardiothoracic Vascular Surgery); ATTEND Thoracic Surgery (Cardiothoracic Vascular Surgery)
PROC: 02100Z9 Bypass Coronary Artery, One Artery from Left Internal Mammary, Open Approach (ICD-10-PCS; 2017-02-25)
PROC: 021009W Bypass Coronary Artery, One Artery from Aorta with Autologous Venous Tissue, Open Approach (ICD-10-PCS; 2017-02-25)
PROC: 06BP4ZZ Excision of Right Saphenous Vein, Percutaneous Endoscopic Approach (ICD-10-PCS; 2017-02-25)
PROC: B24BZZ4 Ultrasonography of Heart with Aorta, Transesophageal (ICD-10-PCS; 2017-02-25)
PROC: 5A1221Z Performance of Cardiac Output, Continuous (ICD-10-PCS; 2017-02-25)
PROC: 02570ZK Destruction of Left Atrial Appendage, Open Approach (ICD-10-PCS; 2017-02-25)
PROC: 0T9B70Z Drainage of Bladder with Drainage Device, Via Natural or Artificial Opening (ICD-10-PCS; 2017-02-25)
PROC: 30233N1 Transfusion of Nonautologous Red Blood Cells into Peripheral Vein, Percutaneous Approach (ICD-10-PCS; 2017-02-25)
PROC: 02RF0JZ Replacement of Aortic Valve with Synthetic Substitute, Open Approach (ICD-10-PCS; principal; 2017-02-25 08:30)
DX: I35.0 Nonrheumatic aortic (valve) stenosis (principal); J81.0 Acute pulmonary edema; J18.9 Pneumonia, unspecified organism; J98.11 Atelectasis; N39.0 Urinary tract infection, site not specified; I48.91 Unspecified atrial fibrillation; I25.10 Atherosclerotic heart disease of native coronary artery without angina pectoris; I10 Essential (primary) hypertension; E11.9 Type 2 diabetes mellitus without complications; R33.9 Retention of urine, unspecified; I70.0 Atherosclerosis of aorta; F32.9 Major depressive disorder, single episode, unspecified; I45.81 Long QT syndrome; R06.89 Other abnormalities of breathing; W07.XXXA Fall from chair, initial encounter; Y92.238 Other place in hospital as the place of occurrence of the external cause; J98.01 Acute bronchospasm; N28.9 Disorder of kidney and ureter, unspecified; Z79.01 Long term (current) use of anticoagulants; Z90.49 Acquired absence of other specified parts of digestive tract; Z88.5 Allergy status to narcotic agent; Y93.89 Activity, other specified; Y99.8 Other external cause status; J40 Bronchitis, not specified as acute or chronic
CPT/HCPCS: 36415; 36600; 71010; 71020; 80048; 80053; 81001; 81003; 82040; 82330; 82800; 82803; 82810; 82947; 82962; 83036; 83735; 84132; 84295; 85014; 85018; 85025; 85049; 85347; 85610; 85730; 86850; 86900; 86923; 87081; 88304; 88305; 93005; 93312; 93321; 93325; 93880; 93970; 94002; 94150; 94640; C1768; J0697; J1170; J1644; J1650; J1815; J1940; J2250; J2405; J2704; J2720; J3010; J3370; J3475; J3480; J3490; J7613; P9045; P9047; 92523-GN; C1760; C9113; C9248; J0171; J0282; J0780; J2370; J2440; J2930; J7030; J7050; J7060; J7512; P9016

== ENCOUNTER 2017-04-08 22:23 | Emergency (ER) | payer OTHER ==
[~2017-04-08] VITALS: Ht 157.5 cm; Wt 91.0 kg
[~2017-04-08 22:23] MED LIST changes: +ALBU2.5V NPPB; +AMLO5TAB2 PO; +ASPI-621 PO; +CIPR500T87 PO; +CITA20TA9 PO; +DOCU-30 PO; +GUAI200T3 PO; +INSU100I18 SQ-INSULIN; +INSU100I28 SQ-INSULIN; +METO25TA35 PO; +NYST1000 PO; +WARF1TAB PO-COUM
[2017-04-08] MEDS ORDERED: POTA10CA PO (22:48)
[2017-04-08] MEDS ORDERED: VENL37.52 PO (22:48)
[2017-04-08] MEDS ORDERED: FURO40TA6 PO (22:48)
[2017-04-08] MEDS ORDERED: ALPR0.25 PO (22:48)
[2017-04-09 00:26] LABS: BLOOD UREA NITROGEN 15 mg/dL (7-18)
[2017-04-09] MEDS ORDERED: MORPHINE SULFATE 4 MG/ML, 1ML ONE (01:04)
[2017-04-09] MEDS ORDERED: HYDROmorphone 2 MG/ML, 1ML IVPush STA (01:06)
[2017-04-09] MEDS ORDERED: HYDROmorphone 1 MG/ML, 1ML ONE (01:06)
[2017-04-09] MEDS ORDERED: SODIUM CHLORIDE 0.9% 1,000ML IVBOLUS ONE (03:00)
[2017-04-09 04:29] VITALS: BP 120/66
== END 2017-04-09 04:33 | disposition home or self-care (01) ==
LOC: ED 23:59
DX: M54.6 Pain in thoracic spine (principal); M51.36 Other intervertebral disc degeneration, lumbar region; M51.26 Other intervertebral disc displacement, lumbar region; M51.34 Other intervertebral disc degeneration, thoracic region; E13.40 Other specified diabetes mellitus with diabetic neuropathy, unspecified
CPT/HCPCS: 36415; 72157; 72158; 80048; 82040; 85025; 85610; 93005; 96361; 96374; 99285; J1170; J7030